=== PATIENT | male | born 1995 | race Caucasian/White ===

== ENCOUNTER 2017-01-16 01:39 | Emergency (ER) | payer SELFPAY ==
[~2017-01-16] VITALS: Ht 190.5 cm; Wt 87.7 kg
[2017-01-16 02:12] LABS: HEMATOCRIT 48.6 % (39.2-51.8); HEMOGLOBIN 16.8 g/dL (13.7-18.0); WHITE BLOOD COUNT 10.5 x10^3/uL (3.4-10)
[2017-01-16 02:26] LABS: BLOOD UREA NITROGEN 13 mg/dL (7-18)
[2017-01-16 02:36] LABS: IS PT STATUS REG ER OR PRE ER? YES
[2017-01-16 02:55] VITALS: BP 131/69
== END 2017-01-16 03:11 | disposition home or self-care (01) ==
LOC: ED 02:41
DX: R07.2 Precordial pain (principal); F10.120 Alcohol abuse with intoxication, uncomplicated
CPT/HCPCS: 36415; 71020; 80048; 80307; 82040; 84484; 85025; 93005; 99285; G0479